=== PATIENT | female | born 1975 | race American Indian/Alaskan Native ===

== ENCOUNTER 2016-11-14 21:36 | Observation (INO) | payer OTHER ==
[2016-11-14 21:48] VITALS: TEMP 98.4
[2016-11-14] MEDS ORDERED: Sodium Chloride 0.9% 1,000 ML IV STA (22:00)
[2016-11-14] MEDS ORDERED: Pantoprazole 40 MG in Sodium Chloride 0.9% 100 ML IV STA (22:00)
[2016-11-14] MEDS ORDERED: Morphine 4 mg/ml ISec IVP STA (22:00)
--- NOTE | 2016-11-14 22:16 | ED PDOC ---
Arrival/HPI - General Chief Complaint: Female Genitourinary Time Seen by Provider: 11/14/16 21:52 Historian: Patient - History of Present Illness Narrative History of Present Illness (Text): 11/14/16 22:15 Les Will is a 41 year old female who presents to the emergency department complaining of 3 day duration of left upper quadrant abdominal pain radiating to the back. Reports that symptoms are associated with nausea. Denies fever, chills, headache, dizziness, chest pain, shortness of breath, vomiting, diarrhea , urinary symptoms, or any other complaints at this time. Time/Duration: < week (3 days ) Symptom Onset: Gradual Severity Level: Mild Activities at Onset: Light Past Medical History - Provider Review Nursing Documentation Reviewed: Yes - Cardiac Hx Hypertension: Yes - Endocrine/Metabolic Hx Hyperthyroidism: Yes - Psychiatric Hx Substance Use: No Family/Social History - Physician Review Nursing Documentation Reviewed: Yes Family/Social History: No Known Family HX Smoking Status: n Hx Alcohol Use: No Hx Substance Use: No Allergies/Home Meds Allergies/Adverse Reactions: Allergies prednisone Allergy (Verified 11/14/16 21:45) RASH Home Medications: Home Meds Medication Instructions Recorded Confirmed Aspirin [Aspirin Chewable] 81 mg PO DAILY 11/14/16 11/14/16 Metoprolol Succinate XL [Toprol XL] 25 mg PO BRK 11/14/16 11/14/16 Review of Systems - Physician Review All systems were reviewed & negative as marked: Yes - Review of Systems Constitutional: Normal. absent: Fatigue, Fevers Respiratory: Normal. absent: SOB, Cough, Sputum Gastrointestinal: Abdominal Pain (LUQ ), Nausea. absent: Diarrhea, Vomiting Musculoskeletal: Back Pain Neurological: Normal. absent: Headache, Dizziness Physical Exam Vital Signs Reviewed: Yes Vital Signs Temp Pulse Resp BP Pulse Ox 11/15/16 04:36 84 16 155/91 H 97 11/15/16 03:17 86 16 145/81 95 11/15/16 00:45 69 16 152/87 H 100 11/14/16 21:43 98.4 F 78 18 182/76 H 99 Temperature: Afebrile Blood Pressure: Hypertensive Pulse: Regular Respiratory Rate: Normal Appearance: Positive for: Non-Toxic, Other (Obese ) Pain Distress: None Mental Status: Positive for: Alert and Oriented X 3 - Systems Exam Head: Present: Atraumatic, Normocephalic Pupils: Present: PERRL Conjunctiva: Present: Normal Mouth: Present: Moist Mucous Membranes Respiratory/Chest: Present: Clear to Auscultation, Good Air Exchange. No: Respiratory Distress, Accessory Muscle Use Cardiovascular: Present: Regular Rate and Rhythm, Normal S1, S2. No: Murmurs Abdomen: Present: Normal Bowel Sounds. No: Tenderness, Distention, Peritoneal Signs, Rebound, Guarding Back: Present: Normal Inspection. No: CVA Tenderness, Midline Tenderness, Paraspinal Tenderness Upper Extremity: Present: Normal Inspection. No: Cyanosis, Edema Lower Extremity: Present: Normal Inspection. No: Edema Neurological: Present: GCS=15, CN II-XII Intact, Speech Normal, Motor Func Grossly Intact, Normal Sensory Function Skin: Present: Warm, Dry, Normal Color. No: Rashes Psychiatric: Present: Alert, Oriented x 3, Normal Insight, Normal Concentration Medical Decision Making ED Course and Treatment: 11/14/16 22:15 Impression: A 41 year old female who presents to the emergency department complaining of left upper quadrant abdominal pain radiating to the back. Plan: -- EKG -- Labs, cardiac enzymes -- Morphine -- Protonix -- IV Fluids -- Zofran -- Urinalysis -- Reassess and disposition Progress Notes: 11/14/16 22:37 EKG reviewed by me: NSR @ 68 bpm. Normal [place]. Normal Interval. Re-evaluation Time: 06:18 Reassessment Condition: Re-examined, Improved - Lab Interpretations Lab Results: 11/14/16 22:20 11/14/16 22:20 Lab Results 11/14/16 22:20: Sodium 141, Potassium 4.4, Chloride 104, Carbon Dioxide 26, Anion Gap 15, BUN 12, Creatinine 0.8, Est GFR ( Amer) > 60, Est GFR (Non- Af Amer) > 60, Random Glucose 155 H, Calcium 8.9, Total Bilirubin 0.6, AST 33, ALT 18, Alkaline Phosphatase 123, Lactate Dehydrogenase 717 H, Total Creatine Kinase 71, Troponin I 0.02, Total Protein 7.8, Albumin 4.0, Globulin 3.8, Albumin/Globulin Ratio 1.1, Amylase 89, Lipase 58 11/14/16 22:20: Urine Color Yellow, Urine Appearance Clear, Urine pH 7.5, Ur Specific [place] 1.015, Urine Protein Negative, Urine Glucose (UA) Negative, Urine Ketones Negative, Urine Blood Negative, Urine Nitrate Negative, Urine Bilirubin Negative, Urine Urobilinogen 0.2, Ur Leukocyte Esterase Negative 11/14/16 22:20: PT 10.4, INR 0.96, APTT 28.2 11/14/16 22:20: WBC 8.1, RBC 4.69, Hgb 12.1, Hct 36.3, MCV 77.4 L, MCH 25.8, MCHC 33.3, RDW 15.5 H, Plt Count 235, MPV 10.5, Gran % 63.8, Lymph % (Auto) 26.4 , Dukes % (Auto) 6.6 H, Eos % (Auto) 3.0, Baso % (Auto) 0.2, Gran # 5.15, Lymph # 2.1, Dukes # 0.5, Eos # 0.2, Baso # 0.02 I have reviewed the lab results: Yes - RAD Interpretation Narrative RAD Interpretations (Text): EXAM: CT Abdomen and Pelvis Without Intravenous Contrast Dictated and Authenticated by: Tres Mccullough MD FINDINGS: Limitations: Lack of intravenous contrast. Lower thorax: Minimal atelectasis. ABDOMEN: Liver: Unremarkable. Gallbladder and bile ducts: Cholecystectomy. No ductal dilation. Pancreas: Unremarkable. No ductal dilation. Spleen: No splenomegaly. Adrenals: No mass. Kidneys and ureters: No renal calculi. No hydronephrosis. Stomach and bowel: No definite mural thickening. No obstruction. Appendix: Normal caliber. No inflammation. PELVIS: Bladder: Unremarkable. No stones. Reproductive: Apparent 1.7 x 1.5 x 1.6 cm hypodense lesion within LEFT adnexal region. ABDOMEN and PELVIS: Intraperitoneal space: No significant fluid collection. No free air. Bones/joints: No acute fracture. Soft tissues: Unremarkable. Vasculature: Minimal atherosclerotic disease of aorta. No aneurysm. Lymph nodes: No pathologically enlarged lymph nodes. IMPRESSION: 1. Possible LEFT ovarian cyst. Consider ultrasound. 2. Incidental/non-acute findings are described above. Radiology Orders: 11/14/16 22:45 ABD & PELVIS W/O PO OR IV CONT [CT] Stat [employer] Rep[employer]r Helper: ED Physician, Radiologist - EKG Interpretation Interpreted by ED Physician: Yes Type: 12 lead EKG - Medication Orders Current Medication Orders: Sodium Chloride (Sodium Chloride 0.9%) 1,000 mls @ 100 mls/hr IV .Q10H STA Stop: 11/15/16 07:59 Last Admin: 11/14/16 22:36 Dose: 100 mls/hr Discontinued Medications Hydromorphone HCl (Dilaudid) 2 mg IVP STAT STA Stop: 11/14/16 23:42 Last Admin: 11/15/16 00:59 Dose: 2 mg Morphine Sulfate (Morphine) 4 mg IVP STAT STA Stop: 11/14/16 22:01 Last Admin: 11/14/16 22:37 Dose: 4 mg Ondansetron HCl (Zofran Inj) 4 mg IVP STAT STA Stop: 11/14/16 22:21 Last Admin: 11/14/16 22:37 Dose: 4 mg Ondansetron HCl (Zofran Inj) 4 mg IVP STAT STA Stop: 11/15/16 05:19 Last Admin: 11/15/16 05:25 Dose: 4 mg Pantoprazole Sodium (Protonix Inj) 40 mg IVP STAT STA Stop: 11/14/16 22:21 Last Admin: 11/14/16 22:37 Dose: 40 mg ED OBSERVATION Discharge: Yes Date of observation admission: 11/15/16 Time of observation admission: 00:00 - Observation admission statement Patient is being placed in observation because:: Abdominal pain - Goals of Observation Goals of observation are:: Pending CT results, labs, reevaluation and dispositions - Progress Note Progress Note: 11/15/16 01:12 CT abdomen pelvis results reviewed: IMPRESSION: 1. Possible LEFT ovarian cyst. Consider ultrasound. 2. Incidental/non-acute findings. 11/15/16 03:40 Patient resting comfortably with stable vital signs. 11/15/16 05:40 Patient sleeping in the emergency room with stable vitals. - Scribe Statement The provider has reviewed the documentation as recorded by the Glenn Chavarria Provider Attestation: All medical record entries made by the Anastasiiaibcaden were at my direction and personally dictated by me. I have reviewed the chart and agree that the record accurately reflects my personal performance of the history, physical exam, medical decision making, and the department course for this patient. I have also personally directed, reviewed, and agree with the discharge instructions and disposition. Disposition/Present on Arrival - Present on Arrival Any Indicators Present on Arrival: No History of DVT/PE: No History of Uncontrolled Diabetes: No Urinary Catheter: No History of Decub. Ulcer: No History Surgical Site Infection Following: None - Disposition Have Diagnosis and Disposition been Completed?: Yes Diagnosis: Abdominal pain Disposition: HOME/ ROUTINE Disposition Time: 06:18 Condition: GOOD
[2016-11-14 22:29] LABS: PH,URINE 7.5 (4.7-8.0); URINE BILIRUBIN NEGATIVE (NEGATIVE); URINE BLOOD NEGATIVE (NEGATIVE); URINE GLUCOSE (UA) NEGATIVE (NEGATIVE); URINE KETONE NEGATIVE (NEGATIVE); URINE LEUKOCYTE ESTERASE NEGATIVE Leu/uL (NEGATIVE); URINE PROTEIN NEGATIVE mg/dL (<30 mg/dL); URINE UROBILINOGEN 0.2 E.U./dL (<1 E.U./dL)
[2016-11-14 22:38] LABS: BASO # 0.02 K/mm3 (0.0-2.0); BASO % 0.2 % (0.0-3.0); EOS # 0.2 (0.0-0.7); GRAN # 5.15 (1.4-6.5); GRAN % 63.8 % (50.0-68.0); HEMATOCRIT 36.3 % (36.0-48.0); LYMPH # 2.1 (1.2-3.4); LYMPH % 26.4 % (22.0-35.0); MEAN CELL VOLUME 77.4 fl (80.0-105.0); MEAN CORPUSCULAR HEMOGLOBIN 25.8 pg (25.0-35.0); MEAN CORPUSCULAR HGB CONC 33.3 g/dl (31.0-37.0); MEAN PLATELET VOLUME 10.5 fl (7.0-11.0); MONO # 0.5 (0.1-0.6); MONO % 6.6 % (1.0-6.0); RED CELL DISTRIBUTION WIDTH 15.5 % (11.5-14.5); WHITE BLOOD COUNT 8.1 10^3/ul (4.5-11.0)
[2016-11-14 22:43] LABS: ALB/GLOB RATIO 1.1 (1.1-1.8); ALKALINE PHOSPHATASE 123 U/L (38-126); ALT/SGPT 18 U/L (7-56); AMYLASE 89 U/L (35-125); AST/SGOT 33 U/L (14-36); BILIRUBIN,TOTAL 0.6 mg/dL (0.2-1.3); BLOOD UREA NITROGEN 12 mg/dL (7-21); CALCIUM 8.9 mg/dL (8.4-10.5); CARBON DIOXIDE 26 mmol/L (21-33); CHLORIDE 104 mmol/L (98-107); GFR AFRICAN-AMERICAN > 60; GLUCOSE,RANDOM 155 mg/dL (70-110); LIPASE 58 U/L (23-300); POTASSIUM 4.4 mmol/L (3.6-5.0); SODIUM 141 mmol/L (132-148); TOTAL PROTEIN 7.8 g/dL (5.8-8.3)
[2016-11-14 22:45] LABS: URINE APPEARANCE CLEAR (CLEAR); URINE COLOR YELLOW (YELLOW)
[2016-11-14 22:49] LABS: INR 0.96 (0.93-1.08); PARTIAL THROMBOPLASTIN TIME 28.2 Seconds (23.7-30.8)
[2016-11-14 22:53] LABS: TROPONIN I 0.02 ng/mL
[2016-11-14] MEDS ORDERED: HYDROmorphone 2 mg/ml ISec IVP STA (23:41)
--- NOTE | 2016-11-15 01:07 | CT ---
EXAM: CT Abdomen and Pelvis Without Intravenous Contrast CLINICAL HISTORY: 41 years old, female; Pain; Abdominal pain; Prior surgery; Surgery date: 6+ months; Surgery type: Csection x6, gallbladder removal, tubal ligation; Additional info: Luq pain TECHNIQUE: Axial computed tomography images of the abdomen and pelvis without intravenous contrast. All CT scans at this facility use one or more dose reduction techniques, viz.: automated exposure control; ma/kV adjustment per patient size (including targeted exams where dose is matched to indication; i.e. head); or iterative reconstruction technique. Coronal and sagittal reformatted images were created and reviewed. COMPARISON: No relevant prior studies available. FINDINGS: Limitations: Lack of intravenous contrast. Lower thorax: Minimal atelectasis. ABDOMEN: Liver: Unremarkable. Gallbladder and bile ducts: Cholecystectomy. No ductal dilation. Pancreas: Unremarkable. No ductal dilation. Spleen: No splenomegaly. Adrenals: No mass. Kidneys and ureters: No renal calculi. No hydronephrosis. Stomach and bowel: No definite mural thickening. No obstruction. Appendix: Normal caliber. No inflammation. PELVIS: Bladder: Unremarkable. No stones. Reproductive: Apparent 1.7 x 1.5 x 1.6 cm hypodense lesion within LEFT adnexal region. ABDOMEN and PELVIS: Intraperitoneal space: No significant fluid collection. No free air. Bones/joints: No acute fracture. Soft tissues: Unremarkable. Vasculature: Minimal atherosclerotic disease of aorta. No aneurysm. Lymph nodes: No pathologically enlarged lymph nodes. IMPRESSION: 1. Possible LEFT ovarian cyst. Consider ultrasound. 2. Incidental/non-acute findings are described above.
[2016-11-15 01:58] VITALS: RESP 16
[2016-11-15 06:20] VITALS: BP 129/83; PULSE 73; O2SAT 100
--- NOTE | 2016-11-16 00:17 | CARD ---
APPROVED REPORT EKG Measurement Heart [id number] ID [id number] <Conclusion> Normal sinus rhythm Normal ECG
== END 2016-11-15 06:18 | disposition home or self-care (01) ==
LOC: ED 21:36 → EROBSV 11-15 → MERGE 11-15
PROVIDERS: ADMIT Emergency Medicine; ATTEND Emergency Medicine
DX: R10.12 Left upper quadrant pain (principal); I10 Essential (primary) hypertension
CPT/HCPCS: 74176; 80053; 81003; 82150; 82550; 83615; 83690; 84484; 85025; 85610; 85730; 93005; 96374; 96375; 96376; 99284; C9113; G0378; J1170; J2270; J2405; J7040